=== PATIENT | male | born 1930 | race Caucasian/White ===

== ENCOUNTER 2016-11-02 02:55 | Emergency (ER) | payer OTHER, MEDICARE ==
--- NOTE | 2016-11-02 04:40 | ED ORDER SUMMARY ---
..... Patient: SAMIR COLEMAN OrderSheet [facility] VisitID: [id number] [address]án [place] [address] 86y, M Registration Date/Time: 11/02/2016 ORDER SHEET Weight: 91.6 kg (stated) Allergies: No Known Drug Allergy GENERAL ORDERS: CT Head wo Cont (H/O a "brain tumor".) Urgent (03:24 11/02/2016 Kevin Lorenzo) (Ack 3:29 SRedmond) (4:00 GUnger) UA-Culture if indicated Urgent (03:24 11/02/2016 Kevin Lorenzo) (Ack 3:29 SRedmond) (Sent 4:08 IJurca ER Tech1) (4:12 HSoule) Urine Drug Screen Urgent (03:24 11/02/2016 Kevin Lorenzo) (Ack 3:29 SRedmond) (Sent 4:08 IJurca ER Tech1) (4:12 HSoule) Cardiac Panel Stat (03:24 11/02/2016 Kevin Lorenzo) (Ack 3:29 SRedmond) (3:30 SRedmond) MEDICATION ORDERS: Bactrim DS PO (Tablet 800-160 mg) 1 tab (NOW) (04:39 11/02/2016 Kevin Lorenzo) (Ack 4:44 HSoule) (4:57 HSoule) IV FLUIDS: IV NS : initial bolus none -, then 1000 mL/hr for X1 (NOW) (03:50 11/02/2016 Kevin Lorenzo) (Ack 3:56 HSoule) (3:59 HSoule) ORDER SHEET NOTES: [Electronically signed by Carroll Magallon Dr. (04:44 11/02/2016)] [Electronically signed by Padmini Wilson R.N. (15:45 11/02/2016)] [Electronically locked/signed by Padmini Wilson R.N. (15:45 11/02/2016)]
--- NOTE | 2016-11-02 04:40 | ED CLINICAL REPORT ---
Clinical Report - Physicians/Mid Levels [facility] [address] [place] [address] 11/02/2016 2:55 Patient: SAMIR COLEMAN Time Seen: 03:18; initial patient contact. Arrived- By ambulance. Historian- patient. HISTORY OF PRESENT ILLNESS Chief Complaint: FALL. Location of injuries- left arm. The injury occurred just prior to arrival. Fell out of bed and landed on the ground (Rolled out of bed). Occurred at home. The patient denies pain. No blow to the head, neck pain, loss of consciousness or seizure. Not dazed. REVIEW OF SYSTEMS No numbness, dizziness, loss of vision, chest pain or difficulty breathing. No headache, nausea, vomiting or urinary problems. He has had weakness, but no pain on weight bearing and sustained skin laceration. All systems otherwise negative, except as recorded above. PAST HISTORY Chest Pain. Thrombocytopenia. [place]. Prostate Cancer. Adverse Drug Reaction. Heart Disease. Hypercholesterolemia. Hypertension. Diabetes Mellitus. Depression. ADDITIONAL SURGERIES: Brain surgery. Cardiac Catheterization. Fistula Repair. Hernia Repair. -. Medications: AmLODIPine Besylate Oral (Tablet 5 mg) 1 tablet, daily. Aspir-81 Oral. Atenolol Oral (Tablet 50 mg) 1 tablet, daily. Escitalopram Oxalate Oral (Tablet 20 mg) 1 tablet, daily. Gabapentin Oral (Capsule 100 mg) 1 capsule, 4x a day. Glipizide Oral (Tablet 10 mg) 2 tablets, daily. Melatonin Oral. MetFORMIN HCl Oral (Tablet 1000 mg) 1-1/2 tablets, daily. Rosuvastatin Calcium Oral (Tablet 5 mg) 1 tablet, at bedtime. Tramadol HCL Oral 50 mg, as needed. Wellbutrin SR Oral (Tablet Extended Release 12 Hour 150 mg) 1 tablet. Allergies: No Known Drug Allergy. SOCIAL HISTORY Never smoker. No alcohol use or drug use. ADDITIONAL NOTES The nursing notes have been reviewed with agreement regarding the chief complaint, PMH and patient medications and allergies. PHYSICAL EXAM Vital Signs: 11/02/2016 03:00 BP: 172/67. HR: 66. RR: 20. O2 saturation: 93%. Temp: 97.7 F. Pain level now: 0/10. Have been reviewed. Hypertensive. Heart rate normal. Respiratory rate normal. Temperature normal. Oxygen saturation low. Appearance: Alert. Oriented X3. No acute distress. Head: Head non-tender. No swelling of head. Eyes: Pupils equal, round and reactive to light. EOM intact. ENT: No dental injury. Pharynx normal. Neck: Painless ROM. Non-tender. CVS: Heart sounds normal. Rate normal. Rhythm normal. Respiratory: No respiratory distress. Breath sounds normal. Chest nontender. Abdomen: No visible injury. Soft and nontender. Bowel sounds normal. Skin: (Small superficial skin avulsion L posterior arm.). Extremities: Normal inspection. Extremities atraumatic. Neuro: Oriented X 3. No motor deficit. LABS, X-RAYS, AND EKG EKG: EKG time: (318). Normal sinus rhythm. Rate: 67. Normal P waves. Normal NATALIE. Wide QRS- intraventricular conduction delay. RBBB. LVH. Normal ST and T waves, QT and QTc. EKG unchanged when compared with prior EKG. (Jul 19 2016). The study has been interpreted contemporaneously by me. The study has been independently viewed by me. The EKG appears to be a good tracing. I agree with and confirm the computer reading of the EKG. Interpretation time: 0320. CT Head: No acute changes. (Moderate involutional changes. Chronic ischemic small vessel changes.). Head CT performed without contrast. The study was independently viewed by me, interpreted by the radiologist and discussed with the radiologist. Prior studies were not available for comparison. Interpretation time: 0405. Laboratory Tests: UA-Culture if indicated: (ARUNA: 11/02/2016 04:00) ( MsgRcvd 11/02/2016 04:07) Final results Test Result Flag Units (Reference) URINE COLOR YELLOW URINE APPEARANCE CLEAR URINE GLUCOSE NEGATIVE (NEGATIVE) URINE BILIRUBIN NEGATIVE (NEGATIVE) URINE KETONE NEGATIVE (NEGATIVE) URINE SPECIFIC GRAVITY 1.015 (1.010-1.030) URINE PH 6.5 (5.0-8.0) URINE PROTEIN 1+ (NEGATIVE) URINE UROBILINOGEN 0.2 EU/dL (0.2-1.0) URINE NITRITE NEGATIVE (NEGATIVE) URINE BLOOD TRACE-INTACT (NEGATIVE) URINE LEUK ESTERASE POSITIVE (NEGATIVE) URINE RBC 0-1 rbc/hpf (0-1) URINE WBC 5-10 wbc/hpf (0-1) URINE EPITHELIAL CELLS NONE SEEN EPI/hpf (0-5) URINE BACTERIA NONE SEEN (NONE SEEN) URINE COMMENT CULTURE INDICATED URINE CULTURES ARE SET-UP BASED ON THE FOLLOWING CRITERIA:POSITIVE NITRITEPOSITIVE LEUKOCYTE ESTERASEGREATER THAN 10 WHITE BLOOD CELLSMODERATE (2+) OR GREATER BACTERIA CBC w Diff: (ARUNA: 11/02/2016 03:15) ( [facility] [place] 03:55) Final results Test Result Flag Units (Reference) WHITE BLOOD COUNT 4.9 K/uL (4.5-11.5) RED BLOOD COUNT 3.73 L M/uL (4.50-5.90) HEMOGLOBIN 11.2 L gm/dL (13.5-17.5) HEMATOCRIT 33.5 L % (41.0-53.0) MEAN CELL VOLUME 90 fL (80-100) MEAN CORPUSCULAR HGB 30 pg (26-34) MEAN CORPUSCULAR HGB CONC 33 g/dL (31-37) RED CELL DISTRIBUTION WIDTH 14.2 % (11.6-14.8) PLATELET COUNT 157 K/uL (150-400) POLY % 56 % (50-75) BAND % 0 % (0-8) LYMPH 23 L % (25-40) MONO 19 H % (3-14) EOSINOPHIL % 2 % (0-4) BASOPHIL % 0 % (0-2) METAMYELOCYTE % 0 % (0-1) MYELOCYTE 0 % (0-1) OTHER CELL TYPE 0 CHEM 13 PANEL: (ARUNA: 11/02/2016 03:15) ( [facility] [place] 11/02/2016 03:45) Final results Test Result Flag Units (Reference) GLUCOSE 111 H mg/dL (70-110) BUN 36 H mg/dL (7-18) CREATININE 1.7 H mg/dL (0.6-1.3) Estimated GFR 40.92 mL/min Estimated GFR- 49.59 mL/min Note: Persistent reduction over 3 months in eGFR<60 mL/min/1.73 m2 defines CKD. Patients with eGFR values>=60 mL/min/1.73 m2 may also have CKD if evidence ofpersistent proteinuria. Additional information may be foundat www.kidney.org. SODIUM 144 mmol/L (136-145) POTASSIUM 4.7 mmol/L (3.5-5.1) CHLORIDE 110 H mmol/L (98-107) CARBON DIOXIDE 26 mmol/L (21-32) CALCIUM 9.1 mg/dL (8.5-10.1) TOTAL PROTEIN 7.0 g/dL (6.4-8.2) ALBUMIN 3.9 g/dL (3.3-5.0) BILIRUBIN, TOTAL 0.2 mg/dL (0.0-1.0) ALKALINE PHOSPHATASE 73 U/L (46-116) AST (SGOT) 21 U/L (15-37) ALT (SGPT) 25 U/L (12-78) MAGNESIUM 1.9 mg/dL (1.8-2.4) CPK 76 U/L (24-260) TROPONIN I <0.05 ng/mL (0.00-1.5) TROPONIN REFERENCE RANGE:<0.1 NEGATIVE0.1-1.5 INDETERMINANT>1.5 POSITIVE . PROGRESS AND PROCEDURES Course of Care: Hb actually better, was 10.9 in 07/10. Disposition: Discharged to halfway in good and improved condition. Condition: good. CLINICAL IMPRESSION Fall from bed. Mild dehydration Acute urinary tract infection with cystitis. Rule out single superficial skin avulsion of the left upper arm.No foreign body present. INSTRUCTIONS Protect wound and keep wound area clean. Change dressing twice daily. You may wash wounds briefly, then dry. Apply bacitracin twice daily. Your Current Medications: CONTINUE TAKING THE FOLLOWING MEDICATIONS: AmLODIPine Besylate Oral : Tablet 5 mg, 1 tablet daily. Aspir-81 Oral. Atenolol Oral : Tablet 50 mg, 1 tablet daily. Escitalopram Oxalate Oral : Tablet 20 mg, 1 tablet daily. Gabapentin Oral : Capsule 100 mg, 1 capsule 4x a day. Glipizide Oral : Tablet 10 mg, 2 tablets daily. Melatonin Oral. MetFORMIN HCl Oral : Tablet 1000 mg, 1-1/2 tablets daily. Rosuvastatin Calcium Oral : Tablet 5 mg, 1 tablet at bedtime. Tramadol HCL Oral : 50 mg, prn. Wellbutrin SR Oral : Tablet Extended Release 12 Hour 150 mg, 1 tablet. Prescription Medications: Bactrim DS 800 mg / 160 mg: take 1 tablet orally every 12 hours for 3 days. No refill. Substitution is permissible. Follow-up: Follow up with your doctor in about two days. Call for an appointment. Blood pressure screening was not performed during this visit because the patient has an active diagnosis of hypertension. The patient should follow up with a primary care provider for blood pressure management. (Electronically signed by Carroll Magallon Dr. 11/02/2016 4:44)
--- NOTE | 2016-11-02 04:40 | ED NURSING NOTES ---
Clinical Report - Nurses [facility] [address] [place] [address] 11/02/2016 2:55 [id number] Triage time 03:00 Nov 02 2016. Acuity: LEVEL 3. Chief Complaint: FALL OUT OF BED, onto a carpeted surface and landed on their head. 03:06 11/02/16. SEPSIS SCREEN: Sepsis Screen: negative. Negative (no infection suspected/documented). DIANA COMA SCORE: Diana Coma Scale: 15- eyes open spontaneously (4); best verbal response- oriented x 4 (5); best motor response- obeys commands (6). --03:06 Karli Dorsey 03:00 11/02/16. BP: 172/67. HR: 66. RR: 20. O2 saturation: 93% on room air. Temp: 97.7 F (oral). Pain level now: 0/10. --03:06 Karli Dorsey. Weight: 91.6 kg stated. Height/Length: 71 inches Per Patient. BMI: 28.2. --03:04 Karli Dorsey. Medications AmLODIPine Besylate Oral (Tablet 5 mg) 1 tablet, daily. Aspir-81 Oral. Atenolol Oral (Tablet 50 mg) 1 tablet, daily. Escitalopram Oxalate Oral (Tablet 20 mg) 1 tablet, daily. Gabapentin Oral (Capsule 100 mg) 1 capsule, 4x a day. Glipizide Oral (Tablet 10 mg) 2 tablets, daily. Melatonin Oral. MetFORMIN HCl Oral (Tablet 1000 mg) 1-1/2 tablets, daily. Rosuvastatin Calcium Oral (Tablet 5 mg) 1 tablet, at bedtime. Tramadol HCL Oral 50 mg, as needed. Wellbutrin SR Oral (Tablet Extended Release 12 Hour 150 mg) 1 tablet. --03:02 Karli Dorsey. Medication/allergy information source: EMS. --03:06 Karli Dorsey. Allergies No Known Drug Allergy. --03:02 Karli Dorsey. History Arrived by EMS. Historian: patient. Unaccompanied. ( Patient was asleep and rolled out of bed, he believes he may have hit his head on his night stand. He states that he has been feeling "off or foggy" over the last few days. He reports a history of brain tumor and states, " I just want to get my head checked out".). Location of injuries: head. This occurred just prior to arrival. Occurred at detention. ( Patient reports feeling "foggy" and "off" over the last few days). No loss of consciousness. No neck pain or extremity pain. Treatment WELL DRILLER: See EMS report. EMS treatment WELL DRILLER verbally communicated and report reviewed. See report. BP: 164 / 64. HR: 70. O2 saturation: 95 % room air. ( FS 131). PAST MEDICAL HX: Immunizations: up-to-date. SOCIAL HX: Never smoker. No alcohol use or drug use. No infectious disease exposure. ABUSE ASSESSMENT: No report of abuse. NUTRITIONAL RISK ASSESSMENT: The nutritional risk assessment revealed no deficiencies. LEARNING NEEDS ASSESSMENT: The learning needs assessment revealed no barriers. FALL RISK ASSESSMENT: Fall risk assessment completed. Risk factors identified include patient medications, age greater than 65 years and history of fall. Fall interventions initiated. Patient placed on stretcher. Side rails up x1. Brakes on Bed in low position. Call light in reach of patient. Instructed not to get up without assistance. FUNCTIONAL ASSESSMENT: Functional assessment performed: requires assistance with the activities of daily living; uses walker. SKIN INTEGRITY ASSESSMENT: Skin integrity risk assessment completed. No skin integrity risk identified. --03:06 Karli Dorsey. PROBLEMS: Chest Pain. Thrombocytopenia. [place]. Prostate Cancer. Adverse Drug Reaction. Heart Disease. Hypercholesterolemia. Hypertension. Diabetes Mellitus. Depression. --03:02 Karli Dorsey. ADDITIONAL SURGERIES: Brain surgery. Cardiac Catheterization. Fistula Repair. Hernia Repair. --03:02 Karli Dorsey. Interventions ID band on patient. To treatment room. --03:06 Karli Dorsey. PHYSICAL ASSESSMENT To room via stretcher. Patient gowned. GENERAL / NEURO / PSYCH: Alert. Oriented X 4. Appears in no acute distress. HEENT: Pupils equal, round and reactive to light. Head non-tender. RESPIRATORY: Respirations not labored. CVS: Normal heart rate and rhythm. GI / : Abdomen soft and nontender. EXTREMITIES: Left forearm: (small quarter sized skin tear, cleaned and bandaged.). SKIN: Skin is warm and dry. --03:08 SunitaKarli cartagena. NURSING PROGRESS NOTES accountant supervisor, pulse oximeter and NIBP monitor placed on patient; monitor alarms on. Patient gowned. Warming measures: blanket applied. Reassurance given to the patient. Two patient identifiers checked. Call light placed in reach. Side rails up x 1. Bed placed in lowest position. Brakes of bed on. Patient ready for evaluation- chart flagged. --03:09 Femi Dorseynah 03:17 11/02/2016 Site #1 started via IV in the right forearm with an 20g angiocath, with aseptic technique and good blood return; one attempt. Blood drawn: rainbow set. Labeled in the presence of the patient and sent to the lab. Saline lock flushed with 10 mL saline. --03:17 SunitaKarli cartagena EKG time: (03:18 Nov 02 2016). EKG was performed by a tech and shown to the ED physician. --03:18 Karli Dorsey Patient transported to CT by stretcher with tech. (03:34 Nov 02 2016). --03:34 Karli Dorsey Patient returned from CT by stretcher with tech. (03:47 Nov 02 2016). --03:47 Karli Dorsey 14 fr in/out catheterization. Reason for indwelling catheter: obstruction. During procedure hand hygiene observed and sterile equipment and aseptic technique used. Return of 300 mL yellow-colored clear urine. He tolerated procedure well. --03:57 Sunita Karli 03:59 11/02/2016 Started bag #1 1000 mL IV Fluids IV NS (Saline); at 1000 mL/hr over 1 hour(s) via site #1. Allergies verified and confirmed 5 rights. IV patency established. IV site checked: no pain, redness, or swelling. IV flushed thoroughly pre- and post-medication administration. --03:59 Sunita Karli 03:59 11/02/16. BP: 158/55. HR: 65. RR: 20. O2 saturation: 93% on room air. --04:00 Karli Dorsey 04:57 11/02/2016 Bactrim DS (Sulfamethoxazole-TMP DS) PO Tablets 1 tab given. Allergies verified and confirmed 5 rights. --04:57 SunitaFemi cartagenanah 04:57 11/02/2016 IV Fluids IV NS Discontinued: bag #1 completed. Total amount infused: 1000 mL. IV patency established. IV site checked: no pain, redness, or swelling. IV flushed thoroughly. --04:57 Karli Dorsey ( Patients Power of finance attorney contacted to arrange transportation home, no answer at this time. Will attempt to contact family again. Patients assisted living facility contacted, they report no transportation means until 0900.). --04:58 Karli Dorsey The patient reports no complaints and he is resting quietly. ( Light dimmed and blankets provided). --04:59 Karli Dorsey ( Patient resting, breakfast tray ordered.). --05:29 Karli Dorsey 05:28 11/02/16. BP: 163/66. HR: 67. RR: 20. O2 saturation: 92% on room air. Pain level now: 0/10. --05:29 Karli Dorsey ( Family called, left message to call back.). --05:47 Karli Dorsey The patient is resting quietly. --06:28 Karli Dorsey 06:28 11/02/16. BP: 169/90. HR: 65. RR: 20. O2 saturation: 93% on room air. --06:28 Karli Dorsey Care transferred and report given (Padmini Floyd). --07:03 Karli Dorsey 07:45 11/02/16. ( Daughter phoned. Left message to call back.). --07:45 Padmini Wilson R.N. 07:50 11/02/16. BP: 152/50. HR: 74. RR: 16. O2 saturation: 92% on room air. Pain level now 0/10. --07:51 Soraya Dolan RAlcides DISPOSITION / DISCHARGE 07:05 11/02/16. Condition at departure: stable. The goals identified in the patient's plan of care were met. No learning barriers present. Discharge instructions provided and reviewed with the patient. Reviewed medication(s) side effects, precautions, dosing and course information. Prescription(s) given to the patient. Patient verbalized understanding. Written instructions provided in Maori. ( Increase fluids. Follow up with your PCP regarding your Urinary tract infection. Return if symptoms worsen. Patient verbalized understanding and had no questions at this time.). --07:05 Karli Dorsey 07:06 11/02/2016 Site #1 removed upon discharge. Catheter intact. Bandaid applied. --07:06 Karli Dorsey 15:43 11/02/16. BP: 169/92. HR: 69. RR: 14. O2 saturation: 95% on room air. Temp: 98 F (oral). Pain level now: 0/10. --15:44 Padmini Wilson R.N. Locked/Released at 11/02/2016 15:45 by Padmini Wilson R.N.
--- NOTE | 2016-11-02 04:40 | ED ORDER SUMMARY ---
..... Patient: SAMIR COLEMAN OrderSheet [facility] VisitID: [id number] [address] [place] [address] 86y, M Registration Date/Time: 11/02/2016 ORDER SHEET Weight: 91.6 kg (stated) Allergies: No Known Drug Allergy GENERAL ORDERS: CT Head wo Cont (H/O a "brain tumor".) Urgent (03:24 11/02/2016 Kevin Lorenzo) (Ack 3:29 SRedmond) (4:00 GUnger) UA-Culture if indicated Urgent (03:24 11/02/2016 Kevin Lorenzo) (Ack 3:29 SRedmond) (Sent 4:08 IJurca ER Tech1) (4:12 HSoule) Urine Drug Screen Urgent (03:24 11/02/2016 Kevin Lorenzo) (Ack 3:29 SRedmond) (Sent 4:08 IJurca ER Tech1) (4:12 HSoule) Cardiac Panel Stat (03:24 11/02/2016 Kevin Lorenzo) (Ack 3:29 SRedmond) (3:30 SRedmond) MEDICATION ORDERS: Bactrim DS PO (Tablet 800-160 mg) 1 tab (NOW) (04:39 11/02/2016 Kevin Lorenzo) (Ack 4:44 HSoule) (4:57 HSoule) IV FLUIDS: IV NS : initial bolus none -, then 1000 mL/hr for X1 (NOW) (03:50 11/02/2016 Kevin Lorenzo) (Ack 3:56 HSoule) (3:59 HSoule) ORDER SHEET NOTES: [Electronically signed by Carroll Magallon Dr. (04:44 11/02/2016)] [Electronically signed by Padmini Wilson R.N. (15:45 11/02/2016)] [Electronically locked/signed by Padmini Wilson R.N. (15:45 11/02/2016)]
--- NOTE | 2016-11-02 04:40 | ED NURSING NOTES ---
Clinical Report - Nurses [facility] [address] [place] [address] 11/02/2016 2:55 [id number] Triage time 03:00 Nov 02 2016. Acuity: LEVEL 3. Chief Complaint: FALL OUT OF BED, onto a carpeted surface and landed on their head. 03:06 11/02/16. SEPSIS SCREEN: Sepsis Screen: negative. Negative (no infection suspected/documented). DIANA COMA SCORE: Diana Coma Scale: 15- eyes open spontaneously (4); best verbal response- oriented x 4 (5); best motor response- obeys commands (6). --03:06 Karli Dorsey 03:00 11/02/16. BP: 172/67. HR: 66. RR: 20. O2 saturation: 93% on room air. Temp: 97.7 F (oral). Pain level now: 0/10. --03:06 Karli Dorsey. Weight: 91.6 kg stated. Height/Length: 71 inches Per Patient. BMI: 28.2. --03:04 Karli Dorsey. Medications AmLODIPine Besylate Oral (Tablet 5 mg) 1 tablet, daily. Aspir-81 Oral. Atenolol Oral (Tablet 50 mg) 1 tablet, daily. Escitalopram Oxalate Oral (Tablet 20 mg) 1 tablet, daily. Gabapentin Oral (Capsule 100 mg) 1 capsule, 4x a day. Glipizide Oral (Tablet 10 mg) 2 tablets, daily. Melatonin Oral. MetFORMIN HCl Oral (Tablet 1000 mg) 1-1/2 tablets, daily. Rosuvastatin Calcium Oral (Tablet 5 mg) 1 tablet, at bedtime. Tramadol HCL Oral 50 mg, as needed. Wellbutrin SR Oral (Tablet Extended Release 12 Hour 150 mg) 1 tablet. --03:02 Karli Dorsey. Medication/allergy information source: EMS. --03:06 Karli Dorsey. Allergies No Known Drug Allergy. --03:02 Karli Dorsey. History Arrived by EMS. Historian: patient. Unaccompanied. ( Patient was asleep and rolled out of bed, he believes he may have hit his head on his night stand. He states that he has been feeling "off or foggy" over the last few days. He reports a history of brain tumor and states, " I just want to get my head checked out".). Location of injuries: head. This occurred just prior to arrival. Occurred at skilled nursing. ( Patient reports feeling "foggy" and "off" over the last few days). No loss of consciousness. No neck pain or extremity pain. Treatment TECHNICAL FELLOW: See EMS report. EMS treatment TECHNICAL FELLOW verbally communicated and report reviewed. See report. BP: 164 / 64. HR: 70. O2 saturation: 95 % room air. ( FS 131). PAST MEDICAL HX: Immunizations: up-to-date. SOCIAL HX: Never smoker. No alcohol use or drug use. No infectious disease exposure. ABUSE ASSESSMENT: No report of abuse. NUTRITIONAL RISK ASSESSMENT: The nutritional risk assessment revealed no deficiencies. LEARNING NEEDS ASSESSMENT: The learning needs assessment revealed no barriers. FALL RISK ASSESSMENT: Fall risk assessment completed. Risk factors identified include patient medications, age greater than 65 years and history of fall. Fall interventions initiated. Patient placed on stretcher. Side rails up x1. Brakes on Bed in low position. Call light in reach of patient. Instructed not to get up without assistance. FUNCTIONAL ASSESSMENT: Functional assessment performed: requires assistance with the activities of daily living; uses walker. SKIN INTEGRITY ASSESSMENT: Skin integrity risk assessment completed. No skin integrity risk identified. --03:06 Karli Dorsey. PROBLEMS: Chest Pain. Thrombocytopenia. DE. Prostate Cancer. Adverse Drug Reaction. Heart Disease. Hypercholesterolemia. Hypertension. Diabetes Mellitus. Depression. --03:02 Karli Dorsey. ADDITIONAL SURGERIES: Brain surgery. Cardiac Catheterization. Fistula Repair. Hernia Repair. --03:02 Karli Dorsey. Interventions ID band on patient. To treatment room. --03:06 Karli Dorsey. PHYSICAL ASSESSMENT To room via stretcher. Patient gowned. GENERAL / NEURO / PSYCH: Alert. Oriented X 4. Appears in no acute distress. HEENT: Pupils equal, round and reactive to light. Head non-tender. RESPIRATORY: Respirations not labored. CVS: Normal heart rate and rhythm. GI / : Abdomen soft and nontender. EXTREMITIES: Left forearm: (small quarter sized skin tear, cleaned and bandaged.). SKIN: Skin is warm and dry. --03:08 SunitaKarli cartagena. NURSING PROGRESS NOTES monitoring engineer, pulse oximeter and NIBP monitor placed on patient; monitor alarms on. Patient gowned. Warming measures: blanket applied. Reassurance given to the patient. Two patient identifiers checked. Call light placed in reach. Side rails up x 1. Bed placed in lowest position. Brakes of bed on. Patient ready for evaluation- chart flagged. --03:09 Femi Dorseynah 03:17 11/02/2016 Site #1 started via IV in the right forearm with an 20g angiocath, with aseptic technique and good blood return; one attempt. Blood drawn: rainbow set. Labeled in the presence of the patient and sent to the lab. Saline lock flushed with 10 mL saline. --03:17 SunitaKarli cartagena EKG time: (03:18 Nov 02 2016). EKG was performed by a tech and shown to the ED physician. --03:18 Karli Dorsey Patient transported to CT by stretcher with tech. (03:34 Nov 02 2016). --03:34 Karli Dorsey Patient returned from CT by stretcher with tech. (03:47 Nov 02 2016). --03:47 Karli Dorsey 14 fr in/out catheterization. Reason for indwelling catheter: obstruction. During procedure hand hygiene observed and sterile equipment and aseptic technique used. Return of 300 mL yellow-colored clear urine. He tolerated procedure well. --03:57 Sunita Karli 03:59 11/02/2016 Started bag #1 1000 mL IV Fluids IV NS (Saline); at 1000 mL/hr over 1 hour(s) via site #1. Allergies verified and confirmed 5 rights. IV patency established. IV site checked: no pain, redness, or swelling. IV flushed thoroughly pre- and post-medication administration. --03:59 Sunita Karli 03:59 11/02/16. BP: 158/55. HR: 65. RR: 20. O2 saturation: 93% on room air. --04:00 Karli Dorsey 04:57 11/02/2016 Bactrim DS (Sulfamethoxazole-TMP DS) PO Tablets 1 tab given. Allergies verified and confirmed 5 rights. --04:57 SunitaFemi cartagenanah 04:57 11/02/2016 IV Fluids IV NS Discontinued: bag #1 completed. Total amount infused: 1000 mL. IV patency established. IV site checked: no pain, redness, or swelling. IV flushed thoroughly. --04:57 Karli Dorsey ( Patients Power of admitted attorneys contacted to arrange transportation home, no answer at this time. Will attempt to contact family again. Patients assisted living facility contacted, they report no transportation means until 0900.). --04:58 Karli Dorsey The patient reports no complaints and he is resting quietly. ( Light dimmed and blankets provided). --04:59 Karli Dorsey ( Patient resting, breakfast tray ordered.). --05:29 Karli Dorsey 05:28 11/02/16. BP: 163/66. HR: 67. RR: 20. O2 saturation: 92% on room air. Pain level now: 0/10. --05:29 Karli Dorsey ( Family called, left message to call back.). --05:47 Karli Dorsey The patient is resting quietly. --06:28 Karli Dorsey 06:28 11/02/16. BP: 169/90. HR: 65. RR: 20. O2 saturation: 93% on room air. --06:28 Karli Dorsey Care transferred and report given (Padmini Floyd). --07:03 Karli Dorsey 07:45 11/02/16. ( Daughter phoned. Left message to call back.). --07:45 Padmini Wilson R.N. 07:50 11/02/16. BP: 152/50. HR: 74. RR: 16. O2 saturation: 92% on room air. Pain level now 0/10. --07:51 Soraya Dolan RAlcides DISPOSITION / DISCHARGE 07:05 11/02/16. Condition at departure: stable. The goals identified in the patient's plan of care were met. No learning barriers present. Discharge instructions provided and reviewed with the patient. Reviewed medication(s) side effects, precautions, dosing and course information. Prescription(s) given to the patient. Patient verbalized understanding. Written instructions provided in Swedish. ( Increase fluids. Follow up with your PCP regarding your Urinary tract infection. Return if symptoms worsen. Patient verbalized understanding and had no questions at this time.). --07:05 Karli Dorsey 07:06 11/02/2016 Site #1 removed upon discharge. Catheter intact. Bandaid applied. --07:06 Karli Dorsey 15:43 11/02/16. BP: 169/92. HR: 69. RR: 14. O2 saturation: 95% on room air. Temp: 98 F (oral). Pain level now: 0/10. --15:44 Padmini Wilson R.N. Locked/Released at 11/02/2016 15:45 by Padmini Wilson R.N.
--- NOTE | 2016-11-02 06:11 | DIAGNOSTIC IMAGING REPORT ---
PROCEDURE: CT HEAD WITHOUT CONTRAST INDICATION: TRAUMA/INJURY, initial encounter. TECHNIQUE: Noncontrast axial images with sagittal and coronal reformations. COMPARISON: None. FINDINGS: Right frontoparietal craniotomy with moderate underlying encephalomalacia. Moderate cortical atrophy and mild enlargement of the ventricular system. Mild white matter chronic ischemic changes. There is no acute hemorrhage, edema, mass or midline shift. 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 Mastoids and paranasal sinuses are clear. No IMPRESSION: 1. Right frontoparietal craniotomy with right frontoparietal encephalomalacia 2. No acute changes 3. Moderate atrophy with mild white matter chronic ischemic changes 4. 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 Preliminary results submitted by Dr. Koo, [facility] radiology. .
--- NOTE | 2016-11-02 15:45 | ED MAR SUMMARY ---
..... Medication Administration Record [facility] [address] [place] [address] Patient: SAMIR COLEMAN Visit ID: [id number] 86y, M Weight: 91.6 kg Height/Length: 71 in BMI: 28.2 ALLERGIES: No Known Drug Allergy Start 03:59 11/02/2016 Karli Dorsey,, Stop 04:57 11/02/2016 Karli Dorsey, Medication Administered: IV NS (SALINE), Dose: IV Fluids over 1 hour(s), Rate: 1000 mL/hr, Dispensed: 1000 mL bag, Site: #1 right forearm. Medication Ordered: IV NS : initial bolus none -, then 1000 mL/hr for X1 (NOW). Given 04:57 11/02/2016 Karli Dorsey, Medication Administered: BACTRIM DS [PO] (SULFAMETHOXAZOLE-TMP DS), Dose: 1 tab Tablets PO. Medication Ordered: Bactrim DS PO (Tablet 800-160 mg) 1 tab (NOW).
--- NOTE | 2016-11-02 15:45 | ED MED RECONCILIATION SUMMARY ---
Patient: SAMIR COLEMAN Medication Reconciliation Report [facility] VisitID: [id number] [address] [place] [address] 86y, M Registration Date/Time: 11/02/2016 Weight: 91.6 kg Height/Length: 71 in. BMI: 28.2 ALLERGIES: No Known Drug Allergy The patient's Home Medications are listed below: CONTINUE TAKING THE FOLLOWING MEDICATIONS: AmLODIPine Besylate Oral (5 mg) 1 tablet, daily Aspir-81 Oral Atenolol Oral (50 mg) 1 tablet, daily Escitalopram Oxalate Oral (20 mg) 1 tablet, daily Gabapentin Oral (100 mg) 1 capsule, 4x a day Glipizide Oral (10 mg) 2 tablets, daily Melatonin Oral MetFORMIN HCl Oral (1000 mg) 1-1/2 tablets, daily Rosuvastatin Calcium Oral (5 mg) 1 tablet, at bedtime Tramadol HCL Oral 50 mg Wellbutrin SR Oral (150 mg) 1 tablet The source(s) of the original Home Medication information: EMS The following Medications were given to the patient in the Emergency Department: IV NS IV Fluids bolus 0, then 1000 mL/hr, administered: 11/02/2016 3:59:00 AM Bactrim DS [PO] PO 1 tab, administered: 11/02/2016 4:57:00 AM The following Medications were prescribed to the patient: Bactrim DS 800 mg / 160 mg: take 1 tablet orally every 12 hours for 3 days. No refill. Substitution is permissible. -- Carroll Magallon Dr.
--- NOTE | 2016-11-02 15:45 | ED DISCHARGE INSTRUCTIONS ---
Patient: SAMIR COLEMAN General Instructions [facility] VisitID: [id number] [address] [place] [address] 86y, M Registration Date/Time: 11/02/2016 Fall from bed. Mild dehydration Acute urinary tract infection with cystitis. INSTRUCTIONS Protect wound and keep wound area clean. Change dressing twice daily. You may wash wounds briefly, then dry. Apply bacitracin twice daily. Your Current Medications: CONTINUE TAKING THE FOLLOWING MEDICATIONS: AmLODIPine Besylate Oral : Tablet 5 mg, 1 tablet daily. Aspir-81 Oral. Atenolol Oral : Tablet 50 mg, 1 tablet daily. Escitalopram Oxalate Oral : Tablet 20 mg, 1 tablet daily. Gabapentin Oral : Capsule 100 mg, 1 capsule 4x a day. Glipizide Oral : Tablet 10 mg, 2 tablets daily. Melatonin Oral. MetFORMIN HCl Oral : Tablet 1000 mg, 1-1/2 tablets daily. Rosuvastatin Calcium Oral : Tablet 5 mg, 1 tablet at bedtime. Tramadol HCL Oral : 50 mg, prn. Wellbutrin SR Oral : Tablet Extended Release 12 Hour 150 mg, 1 tablet. Prescription Medications: Bactrim DS 800 mg / 160 mg: take 1 tablet orally every 12 hours for 3 days. No refill. Substitution is permissible. Follow-up: Follow up with your doctor in about two days. Call for an appointment. Blood pressure screening was not performed during this visit because the patient has an active diagnosis of hypertension. The patient should follow up with a primary care provider for blood pressure management. ADDITIONAL INFORMATION Mechanical Fall You have had a fall today. It appears that the cause is mechanical. That means that you slipped, tripped or lost your balance. If your fall had been due to fainting or a seizure, further tests would be required. Home Care: Rest today and resume your normal activities when you are feeling back to normal. If you were injured during the fall, follow the advice from your doctor regarding care of your injury. You may use acetaminophen (Tylenol) or ibuprofen (Motrin, Advil) to control pain, unless another pain medicine was prescribed. [NOTE: If you have chronic liver or kidney disease or ever had a stomach ulcer or GI bleeding, talk with your doctor before using these medicines.] Fall Prevention: Was there anything that caused your fall that can be fixed, removed, or replaced? Make your home safe by keeping walkways clear of objects you may trip over. Use non-slip pads under rugs. Do not walk in poorly lit areas. Do not stand on chairs or wobbly ladders. Use caution when reaching overhead or looking upward. This position can cause a loss of balance. Be sure your shoes fit properly, have non-slip bottoms and are in good condition. Be cautious when going up and down curbs, and walking on uneven sidewalks. If your balance is poor, consider using a cane or walker. Stay as active as you can. Balance, flexibility, strength, and endurance all come from exercise. They all play a role in preventing falls. Follow Up with your doctor or as advised by our staff. Get Prompt Medical Attention if any of the following occur: Repeated mechanical falls, or unexplained falls Dizziness, fainting or seizure Severe headache Chest pain or shortness of breath Palpitations (very rapid or very slow or irregular heartbeat) Blood in vomit, stools (black or red color) Weakness of an arm or leg or one side of the face Difficulty with speech or vision Dehydration (Adult) Dehydration occurs when your body loses too much fluid. This may be the result of vomiting a lot or from diarrhea,sweating a lot, or a high fever. It may also happen if you dont drink enough fluid when youre sick. Misuse of diuretics (water pills) can also be a cause. Symptoms include thirst and feeling dizzy, weak, fatigued, or very drowsy. The diet described below is usually enough to treat most cases. Sometimes you may needmedicine. Home Care Follow these guidelines for home care: Drink at least 12 8-ounce glasses of fluid every day to overcome the dehydration. Fluid may include water; orange juice; lemonade; apple, grape, and cranberry juice; clear fruit drinks; electrolyte replacement and sports drinks; and teas and coffee without caffeine. If you have been diagnosed with a kidney disease, ask your doctor how much and what types of fluids you should drink to prevent dehydration. If you have kidney disease, drinking too much fluid can cause it build up in the your body and be dangerous to your health. If you have fever, muscle aching, or headache from a viral syndrome, you may useacetaminophen or ibuprofen, unless another medicine was prescribed for this.If you have chronic liver or kidney disease or ever had a stomach ulcer or GI bleeding, talk with your doctor before using these medicines. Don't take aspirin if you are younger than 18 and are ill with a fever.Aspirin raises the chance forsevere liver injury. Follow-up care Follow up with your health care provider if you don't get better in the next 24 to 48 hours. When to seek medical care Get prompt medical attention if any of theseoccur: Continued vomiting (cant keep liquids down) Frequent diarrhea (more than 5 times a day); blood (red or black color) or mucus in diarrhea Blood in vomit or stool Swollen abdomen or increasing abdominal pain Weakness, dizziness, or fainting Unusually drowsy or confused Reduced urine output or extreme thirst Fever of 100.4 F (38 C) oral or higher that does not get better with fever medication Bladder Infection,Male (Adult) A bladder infection ("cystitis" or "UTI") usually causes a constant urge to urinate, and a burning when passing urine. Urine may be cloudy, smelly or dark. There may be also be pain in the lower abdomen. Cystitis in males is not common. It may be caused by a partial blockage in the urinary system that keeps the bladder from emptying completely. This is most often related to an enlarged prostate gland. Home Care: Drink lots of fluids (at least 6-8 glasses a day). This will flush the bacteria out of your bladder. Avoid sexual intercourse until your symptoms are gone. Avoid caffeine, alcohol, and spicy foods. They could irritate the bladder. A bladder infection is treated with antibiotics. You may also be given Pyridium (generic - phenazopyridine) to reduce burning with urination. This will cause urine to become a bright orange color, which can stain clothing. Follow Up with your doctor or this facility if ALL symptoms have not cleared within five days. It is important to keep your follow up appointment to discuss with your doctor the need for further tests of the urinary tract. Get Prompt Medical Attention if any of the following occur: Fever of 100.4F (38C) or higher, or as directed by your healthcare provider No improvement by the third day of treatment Increasing back or abdominal pain Repeated vomiting; unable to keep medicine down Weakness, dizziness or fainting Bandage Change If the bandage becomes wet or dirty, replace it. Otherwise, leave it in place for the first 24 hours. Then once a day: After removing the bandage, wash the area with soap and water. Use a wet cotton swab to loosen and remove any blood or crust that forms on the wound. After cleaning, apply a thin layer of antibiotic ointment or cream. Reapply the bandage. You may shower as usual after the first 24 hours. If the bandage is on an arm or leg, cover it with a plastic bag rubber banded at both ends before showering. No tub baths or swimming until the bandage is removed and the wound healed (at least 7 days). Sulfamethoxazole, Trimethoprim Oral tablet What is this medicine? SULFAMETHOXAZOLE; TRIMETHOPRIM or SMX-TMP (suhl fuh meth OK bry zohl; trye METH oh prim) is a combination of a sulfonamide antibiotic and a second antibiotic, trimethoprim. It is used to treat or prevent certain kinds of bacterial infections. It will not work for colds, flu, or other viral infections. How should I use this medicine? Take this medicine by mouth with a full glass of water. Follow the directions on the prescription label. Take your medicine at regular intervals. Do not take it more often than directed. Do not skip doses or stop your medicine early. Talk to your bottle and glass inspector regarding the use of this medicine in children. Special care may be needed. This medicine has been used in children as young as 2 months of age. What side effects may I notice from receiving this medicine? Side effects that you should report to your doctor or health health care technician as soon as possible: allergic reactions like skin rash or hives, swelling of the face, lips, or tongue breathing problems fever or chills, sore throat irregular heartbeat, chest pain joint or muscle pain pain or difficulty passing urine red pinpoint spots on skin redness, blistering, peeling or loosening of the skin, including inside the mouth unusual bleeding or bruising unusually weak or tired yellowing of the eyes or skin Side effects that usually do not require medical attention (report to your doctor or health health care technician if they continue or are bothersome): diarrhea dizziness headache loss of appetite nausea, vomiting nervousness What may interact with this medicine? Do not take this medicine with any of the following medications: aminobenzoate potassium dofetilide metronidazole This medicine may also interact with the following medications: SANTIAGO inhibitors like benazepril, enalapril, lisinopril, and ramipril cyclosporine digoxin diuretics indomethacin medicines for diabetes methenamine methotrexate phenytoin potassium supplements pyrimethamine sulfinpyrazone tricyclic antidepressants warfarin What if I miss a dose? If you miss a dose, take it as soon as you can. If it is almost time for your next dose, take only that dose. Do not take double or extra doses. Where should I keep my medicine? Keep out of the reach of children. Store at room temperature between 20 to 25 degrees C (68 to 77 degrees F). Protect from light. Throw away any unused medicine after the expiration date. What should I tell my health care provider before I take this medicine? They need to know if you have any of these conditions: anemia asthma being treated with anticonvulsants if you frequently drink alcohol containing drinks kidney disease liver disease low level of folic acid or iouegac-2-hddbteotb dehydrogenase poor nutrition or malabsorption porphyria severe allergies thyroid disorder an unusual or allergic reaction to sulfamethoxazole, trimethoprim, sulfa drugs, other medicines, foods, dyes, or preservatives or trying to get breast-feeding What should I watch for while using this medicine? Tell your doctor or health health care technician if your symptoms do not improve. Drink several glasses of water a day to reduce the risk of kidney problems. Do not treat diarrhea with over the counter products. Contact your doctor if you have diarrhea that lasts more than 2 days or if it is severe and watery. This medicine can make you more sensitive to the sun. Keep out of the sun. If you cannot avoid being in the sun, wear protective clothing and use a sunscreen. Do not use sun lamps or tanning beds/booths. You have been given the following additional information: Fall, Mechanical Dehydration (Adult) Bladder Infection, Male (Adult) Dressing Change Sulfamethoxazole, Trimethoprim Oral tablet (Electronically signed by Carroll Magallon Dr. 11/02/2016 4:44)
--- NOTE | 2016-11-02 15:45 | ED MAR SUMMARY ---
..... Medication Administration Record [facility] [address] [place] [address] Patient: SAMIR COLEMAN Visit ID: [id number] 86y, M Weight: 91.6 kg Height/Length: 71 in BMI: 28.2 ALLERGIES: No Known Drug Allergy Start 03:59 11/02/2016 Karli Dorsey,, Stop 04:57 11/02/2016 Karli Dorsey, Medication Administered: IV NS (SALINE), Dose: IV Fluids over 1 hour(s), Rate: 1000 mL/hr, Dispensed: 1000 mL bag, Site: #1 right forearm. Medication Ordered: IV NS : initial bolus none -, then 1000 mL/hr for X1 (NOW). Given 04:57 11/02/2016 Karli Dorsey, Medication Administered: BACTRIM DS [PO] (SULFAMETHOXAZOLE-TMP DS), Dose: 1 tab Tablets PO. Medication Ordered: Bactrim DS PO (Tablet 800-160 mg) 1 tab (NOW).
--- NOTE | 2016-11-02 15:45 | ED MED RECONCILIATION SUMMARY ---
Patient: SAMIR COLEMAN Medication Reconciliation Report [facility] VisitID: [id number] [place] [address] 86y, M Registration Date/Time: 11/02/2016 Weight: 91.6 kg Height/Length: 71 in. BMI: 28.2 ALLERGIES: No Known Drug Allergy The patient's Home Medications are listed below: CONTINUE TAKING THE FOLLOWING MEDICATIONS: AmLODIPine Besylate Oral (5 mg) 1 tablet, daily Aspir-81 Oral Atenolol Oral (50 mg) 1 tablet, daily Escitalopram Oxalate Oral (20 mg) 1 tablet, daily Gabapentin Oral (100 mg) 1 capsule, 4x a day Glipizide Oral (10 mg) 2 tablets, daily Melatonin Oral MetFORMIN HCl Oral (1000 mg) 1-1/2 tablets, daily Rosuvastatin Calcium Oral (5 mg) 1 tablet, at bedtime Tramadol HCL Oral 50 mg Wellbutrin SR Oral (150 mg) 1 tablet The source(s) of the original Home Medication information: EMS The following Medications were given to the patient in the Emergency Department: IV NS IV Fluids bolus 0, then 1000 mL/hr, administered: 11/02/2016 3:59:00 AM Bactrim DS [PO] PO 1 tab, administered: 11/02/2016 4:57:00 AM The following Medications were prescribed to the patient: Bactrim DS 800 mg / 160 mg: take 1 tablet orally every 12 hours for 3 days. No refill. Substitution is permissible. -- Carroll Mag[address]on Dr[address]
== END 2016-11-02 09:00 | disposition home or self-care (01) ==
LOC: ED SRH 02:55
DX: S41.102A Unspecified open wound of left upper arm, initial encounter (principal); Y93.9 Activity, unspecified; W06.XXXA Fall from bed, initial encounter; Y99.9 Unspecified external cause status; Y92.009 Unspecified place in unspecified non-institutional (private) residence as the place of occurrence of the external cause; N30.90 Cystitis, unspecified without hematuria; E86.0 Dehydration; G93.89 Other specified disorders of brain; Z86.69 Personal history of other diseases of the nervous system and sense organs; E11.9 Type 2 diabetes mellitus without complications; I10 Essential (primary) hypertension
CPT/HCPCS: 90004; 90100; 90148; 90469; 90616; 91643; 92610; 92720; 92760; 92761; 92762; 92763; 92764; 92765; 92766; 92767; 95059